=== PATIENT | female | born 1985 | race Hispanic/Latino ===

== ENCOUNTER 2019-10-02 10:50 | Emergency (ER) | payer OTHER ==
[~2019-10-02] VITALS: Ht 167.6 cm; Wt 81.7 kg
== END 2019-10-02 13:43 | disposition home or self-care (01) ==
LOC: ED 10:50
DX: R10.11 Right upper quadrant pain (principal); E11.9 Type 2 diabetes mellitus without complications
CPT/HCPCS: 80053; 81001; 83690; 84703; 85025; 99284

== ENCOUNTER 2023-12-14 15:47 | Emergency (ER) | payer OTHER ==
[~2023-12-14] VITALS: Ht 162.6 cm; Wt 85.3 kg
[~2023-12-14 15:47] MED LIST: ADVIL200 MG PO; HYDROCODON-ACE1 EAC8 PO; OMEPRAZOLE20 MG PO
[2023-12-14] MEDS ORDERED: NAPROXEN500 MG PO (17:38)
[2023-12-14] MEDS ORDERED: TIZANIDINE HCL2 MG PO (17:38)
[2023-12-14] MEDS ORDERED: ACETAMINOPHEN 500 MG TAB PO ONE (18:00)
[2023-12-14] MEDS ORDERED: IBUPROFEN 600 MG TAB PO ONE (18:00)
[2023-12-14] MEDS ORDERED: LACTATED RINGER'S 1,000 ML IV ONE (19:15)
[2023-12-14] MEDS ORDERED: KETOROLAC TROMETHAMINE 30 MG/ML VIAL IV ONE (19:15)
[2023-12-14 19:40] VITALS: BP 140/83
== END 2023-12-14 19:40 | disposition home or self-care (01) ==
LOC: ED 15:47
DX: G44.209 Tension-type headache, unspecified, not intractable (principal); S16.1XXA Strain of muscle, fascia and tendon at neck level, initial encounter; S29.012A Strain of muscle and tendon of back wall of thorax, initial encounter; X58.XXXA Exposure to other specified factors, initial encounter; Z79.899 Other long term (current) drug therapy
CPT/HCPCS: 80053; 84443; 84703; 85025; 99284-25; A9270

== ENCOUNTER 2024-05-13 20:25 | Emergency (ER) | payer OTHER ==
[~2024-05-13] VITALS: Ht 162.6 cm; Wt 82.7 kg
[~2024-05-13 20:25] MED LIST changes: +NAPROXEN500 MG PO; +TIZANIDINE HCL2 MG PO
[2024-05-13 23:06] VITALS: BP 117/77
== END 2024-05-13 23:00 | disposition home or self-care (01) ==
LOC: ED 20:25
DX: S61.307A Unspecified open wound of left little finger with damage to nail, initial encounter (principal); W19.XXXA Unspecified fall, initial encounter; Z79.899 Other long term (current) drug therapy
CPT/HCPCS: 73140; 99283

== ENCOUNTER 2024-08-22 13:52 | Emergency (ER) | payer OTHER ==
[~2024-08-22] VITALS: Ht 162.6 cm; Wt 83.5 kg
[2024-08-22 15:45] LABS: BILIRUBIN, URINE NEGATIVE (negative); BLOOD/HGB, URINE SMALL (Negative); KETONE, URINE NEGATIVE (Negative); LEUK ESTERASE, URINE NEGATIVE (negative); NITRITE, URINE NEGATIVE (negative); PH, URINE 5.5 (5-7)
[2024-08-22 15:52] LABS: RED BLOOD CELLS, URINE 0-1 /hpf (0-5)
[2024-08-22 15:53] LABS: BACTERIA, URINE RARE /hpf (negative); CASTS, URINE NONE SEEN \\lpf; COLLECTION TYPE, URINE CLEAN CATCH; CRYSTALS, URINE NONE SEEN (0-1+); EPITHELIAL CELLS, URINE SQUAMOUS 1+ /lpf (0-1+); REFLEX CULTURE, URINE No (No)
[2024-08-22 16:45] LABS: BASOPHILS 1.3 % (0-2); EOSINOPHILS 1.4 % (0-6); HEMATOCRIT 42.6 % (35.0-50.0); HEMOGLOBIN 14.4 g/dL (12.0-18.0); LYMPHOCYTES 24.2 % (24-44); MCH 31.9 (27-36); MCHC 33.9 g/dl (30-36); MCV 94.3 fl (81-99); MONOCYTES 4.9 % (0-12); NEUTROPHILS 68.2 % (39-80); PLATELET COUNT 319 K/uL (140-440); RBC 4.51 M/ul (4.3-5.7); RDW 12.8 (10.5-15.0)
[2024-08-22 17:06] LABS: ALBUMIN 4.3 g/dL (3.4-5.0); ANION GAP 10.7 (7-21); BILIRUBIN, TOTAL 0.3 ng/dL (0.2-1.0); BUN/CREATININE RATIO 10.95 (6.0-28.6); CALCIUM 9.8 mg/dL (8.5-10.1); CREATININE, SERUM 0.73 mg/dL (0.55-1.02); POTASSIUM 3.7 mmol/L (3.5-5.1); PROTEIN, TOTAL 8.6 g/dL (6.4-8.2)
[2024-08-22] MEDS ORDERED: CEFTRIAXONE/SODIUM CHLORIDE 1 GM/100 ML PIGGYBACK IV ONE (19:15)
[2024-08-22] MEDS ORDERED: ONDANSETRON ODT8 MG PO (19:25)
[2024-08-22] MEDS ORDERED: CEFPODOXIME PR200 MG PO (19:25)
[2024-08-22] MEDS ORDERED: HYDROCODON-ACE1 EA10 PO (19:25)
[2024-08-22] MEDS ORDERED: CEFPODOXIME PROXETIL 200 MG TAB PO ONE (19:30)
[2024-08-22 19:43] VITALS: BP 111/70
[2024-08-22] MEDS ORDERED: TRIMETHOPRIM/SULFAMETHOXAZOLE 1 EA TAB PO ONE (19:45)
== END 2024-08-22 19:43 | disposition home or self-care (01) ==
LOC: ED 13:52
PROVIDERS: Emergency Medicine
DX: N12 Tubulo-interstitial nephritis, not specified as acute or chronic (principal); R91.1 Solitary pulmonary nodule
CPT/HCPCS: 36415; 74177; 80053; 81001; 83690; 84703; 85025; 99284-25; A9270; Q9967